=== PATIENT | male | born 1980 ===

== ENCOUNTER → 2016-09-17 | Outpatient (CLI) | payer BC ==
--- NOTE | 2016-09-17 17:12 | Diagnostic Imaging Report ---
Indication: Right upper quadrant pain, nausea Technique: Corley-scale and duplex images of the upper abdomen were obtained Comparison: None Findings: . Gallbladder demonstrates gallstones. No gallbladder wall thickening or pericholecystic fluid.. Sonographic Way's sign is negative. Common bile duct measures 4 mm in diameter. No intrahepatic biliary ductal dilatation. Liver demonstrates diffusely increased echogenicity, consistent with diffuse hepatocellular disease, most likely fatty change.. Portal vein and hepatic veins are patent.. Pancreas is unremarkable. Spleen is unremarkable. Left kidney measures 11 cm in length. Right kidney measures 11.2 cm length. Both kidneys demonstrate normal echogenicity. There is mild right hydronephrosis. No left hydronephrosis.. No focal abnormality. . Abdominal aorta is partially obscured by bowel gas, visualized portions are non-aneurysmal. Lung demonstrates a 7 mL postvoid residual Impression: Cholelithiasis. Negative for dilated ducts. Liver demonstrates diffusely increased echogenicity, consistent with diffuse hepatocellular disease, most likely fatty change. Mild right hydronephrosis, etiology not demonstrated. Consider CT for better characterization Trace postvoid bladder residual Note suboptimal visualization of the abdominal aorta
== END | disposition home or self-care (01) ==
LOC: ULS 12:10
DX: K80.20 Calculus of gallbladder without cholecystitis without obstruction (principal); N13.30 Unspecified hydronephrosis
CPT/HCPCS: 76700